=== PATIENT | male | born 1965 | race Caucasian/White ===

== ENCOUNTER 2020-11-05 16:02 | Inpatient (IN) | payer OTHER ==
[~2020-11-05] VITALS: Ht 177.8 cm; Wt 78.0 kg
[2020-12-01] VITALS (10 sets, daily range): BP systolic 136–156; BP diastolic 81–97; PULSE 68–82; TEMP 97.9–98.2
[2020-12-01 11:11] LABS: BASO # 0.1 (0.0-0.2); BASO % 0.6 % (0.0-2.0); EOS # 0.1 (0.0-0.7); EOS % 1.6 % (0-4.0); GRAN # 4.6 (1.4-6.5); GRAN % 56.7 % (42.2-75.2); HEMATOCRIT 48.9 % (42.0-52.0); LYMPH # 2.3 (1.2-3.4); MEAN CELL VOLUME 88 fl (80.0-100.0); MEAN CORPUSCULAR HEMOGLOBIN 31 pg (27.0-31.0); MEAN CORPUSCULAR HGB CONC 35 g/dl (33.0-37.0); MEAN PLATELET VOLUME 9.3 fl (7.4-10.4); MONO % 12.9 % (1.7-9.3); PLATELET COUNT 227 K/mm3 (130-400); RED BLOOD COUNT 5.53 M/mm3 (4.20-5.60); REDCELL DISTRIBUTION WIDTH-CV 12.2 % (11.5-14.5)
[2020-12-01 11:17] LABS: CREATININE, serum 1.11 (0.66-1.25); POTASSIUM 4.6 mmol/L (3.4-5.0)
[2020-12-01] MEDS ORDERED: SYNTHROID0.088 MG/T PO (11:35)
[2020-12-01] MEDS ORDERED: MOBIC15 MG PO (11:36)
[2020-12-01] MEDS ORDERED: PROTONIX 40MG T40 MG PO (11:36)
[2020-12-01] MEDS ORDERED: PRINIVIL2.5 MG PO (11:36)
--- NOTE | 2020-12-01 12:25 | NUR ---
Patient taken to surgery per cart and belongings taken to PACU.
--- NOTE | 2020-12-01 19:30 | NUR ---
PATIENT IS ALERT AND ORIENTED X4. AT BEDSIDE. PATIENT HAS LEFT FOREARM IV WITH NO REDNESS, SWELLING, OR EDEMA. PATIENT HAS TERRAZAS WAITING FOR OUTPUT. PATIENT HAS 5 LAP SITES AND A LOWER TRANSVERSE INCISION ALL OPEN TO AIR. PATIENT IS COMPLAINING OF DRY EYES, CALLED ORDER FOR EYE DROPS. PATIENT DENIES FURTHER NEEDS AT THIS TIME. CALL LIGHT WITHIN REACH. HEAD TO TOE ASSESSMENT COMPLETE.
--- NOTE | 2020-12-01 20:00 | NUR ---
Pt. sitting up in bed. Pt. is A&OX3, assessment complete. IV to lt. forearm patent, IV fluids infusing per orders. Foster catheter to DD, alberto, clear urine noted. abd. incisions well approximated. Pt. reported pain at a 5 on pain scale, gave pain meds per orders. Pt. denies further needs, call light within reach.
[2020-12-02] VITALS (7 sets, daily range): BP systolic 104–140; BP diastolic 63–88; PULSE 63–88; TEMP 97.7–98.8
[2020-12-02 06:54] LABS: HEMATOCRIT 44.5 % (42.0-52.0); HEMOGLOBIN 15.3 g/dl (13.5-18.0)
[2020-12-02 07:10] LABS: CALCIUM 9.2 mg/dL (8.4-10.2); CREATININE, serum 1.03 (0.66-1.25); POTASSIUM 4.6 mmol/L (3.4-5.0)
--- NOTE | 2020-12-02 12:28 | NUR ---
First visit from the tank setter. No needs right now.
--- NOTE | 2020-12-02 12:37 | NUR ---
Patient alert and oriented, answers questions appropriately. See assessment. Abdomen soft, tender, non distended. Bowel sounds active x4 quads. +Flatus. Foster catheter patent and draining clear yellow urine. ERAS protocol reviewed with patient. No c/o at this time.
--- NOTE | 2020-12-02 15:21 | NUR ---
chemical worker met with patient to discuss discharge plan. Patient lives at home with his Alejandrina ([phone]) in [place]. Patient reports he is independent on all activities of daily living and uses no medical equipment to assist with mobility. Patient's PCP is Dr. Perez and uses [facility] in [place] for a pharmacy. No trouble affording medications. Patient reports he has a [facility]PO[employer]-[facility] established and verbalized his agent as his . Has forms at home. Patient plans to return home upon discharge. *Discharge plan: Home with spouse*
--- NOTE | 2020-12-02 20:00 | NUR ---
PATIENT ALERT AND ORIENTED X4. PATIENT UP SITTING IN CHAIR AFTER WALK AROUND FLOOR WITH . PATIENT HAS 5 LAP SITES AND LOW TRANSVERSE INCISION ALL OPEN TO AIR. EDGES WELL APPROXIMATED. PATIENT HAS TERRAZAS WITH CLEAR AND YELLOW OUTPUT. PATIENT HAS IV TO LEFT FOREARM. PATIENT DENIES PAIN OF FURTHER NEEDS AT THIS TIME. CALL LIGHT WITHIN REACH. HEAD TO TOE ASSESSMENT COMPLETE.
[2020-12-03 03:30] VITALS: BP 130/79; PULSE 60; TEMP 97.9
--- NOTE | 2020-12-03 06:33 | NUR ---
PATIENT DID WELL THROUGHOUT NIGHT. SLEPT MOST OF NIGHT. RECIEVED PAIN MEDS REQUESTED. AMBULATED WITH AROUND FLOOR BEFORE BED. TO REPORT TO DAY SHIFT.
[2020-12-03 07:00] VITALS: BP 130/80; PULSE 77; TEMP 98.2
--- NOTE | 2020-12-03 09:00 | NUR ---
Patient alert and oriented, answers questions appropriately. See assessment. Abdomen soft, tender, non distended. Bowel sounds active x4 quads. +Flatus. +Bowel movement. Midline and lap sites to abdomen with edges well approximated, no redness or drainage noted. Foster catheter in place, patent, draining adequate amounts clear yellow urine. Foster catheter care and bag changes reviewed with patient. ERAS protocol reviewed. No c/o at this time.
[2020-12-03] MEDS ORDERED: NORCO 325 MG-51 TAB PO (10:32)
--- NOTE | 2020-12-03 11:53 | NUR ---
Discharge instructions reviewed with patient, verbalized understanding. Foster catheter cares and return demonstration reviewed with patient. Discharged ambulatory to auto/home with son at 1145.
== END 2020-12-03 11:45 | disposition home or self-care (01) | DRG 330 ==
LOC: INPTSU 12-01 10:06 → SURG 12-01 10:06
PROVIDERS: Urology; ADMIT Surgery
PROC: 0DTN4ZZ Resection of Sigmoid Colon, Percutaneous Endoscopic Approach (ICD-10-PCS; principal; 2020-12-01 12:30)
PROC: 8E0W4CZ Robotic Assisted Procedure of Trunk Region, Percutaneous Endoscopic Approach (ICD-10-PCS; 2020-12-01 12:30)
DX: K57.32 Diverticulitis of large intestine without perforation or abscess without bleeding (principal); N32.1 Vesicointestinal fistula; K40.90 Unilateral inguinal hernia, without obstruction or gangrene, not specified as recurrent; I10 Essential (primary) hypertension; K21.9 Gastro-esophageal reflux disease without esophagitis; M19.90 Unspecified osteoarthritis, unspecified site; E03.9 Hypothyroidism, unspecified; Z98.52 Vasectomy status
CPT/HCPCS: A4314; A9284; J0690; J1100; J1650; J1885; J2405; J2704; J3010; J7120